=== PATIENT | female | born 1985 | race Caucasian/White ===

== ENCOUNTER 2024-01-22 09:21 | Emergency (ER) | payer OTHER, SELFPAY ==
[2024-01-22] VITALS (7 sets, daily range): BP systolic 119–137; BP diastolic 71–90; BMI 20.4
[2024-01-22] MEDS: TORADOL 15 MG IV (10:30)
--- NOTE | 2024-01-22 10:33 | ED.GENMED ---
History of Present Illness
General
Chief Complaint: Back Pain
Source: patient
Exam Limitations: none
Time Seen by Provider: 01/22/24 09:51
Nursing documentation reviewed up to this point in time: agreed with
History of Present Illness
History of Present Illness:
38 y/o F
h/o depression/anxiety
her e with L back pain that woke her from sleep at 7 am
it has radiated to L flank as well; pt tried moving bowels which didn't help
she has noticed some inc urinary frequency the pat few days
just finished menstrual cycle; no hematuria or dysuria
pain si worse with movement, she says she can't seem to find a comfortable position; was stronger earlier and seemed to be worse with deep breahting
no sob, fever, chills, cough, rash, diarrhea
Past History
Past History
ED Past Medical History: Psychiatric
ED Past Surgical History: None
Social History
Tobacco: Non-smoker
Alcohol: Occasional
Review of Systems
Review of Systems
Allergies reviewed?: Yes
All Other Systems: Not applicable
Phy Exam
Physical Exam
Physical Exam:
GENERAL: Alert , in no apparent distress, comfortable at rest
HEAD: NCAT
NECK: no midline tenderness, active ROM intact, no paraspinal muscle tenderness;
CARDIAC: Regular rate and rhythm, no edema
LUNGS: Clear breath sounds bilaterally, no acute respiratory distress, no wheezes/rales/rhonchi
ABDOMEN: Soft, mil dL flank tenderness; no r/g, no cvat, normal bowel sounds, nondistended
NEUROLOGICAL: Alert and oriented, no focal neuro deficits, CN intact, 5/5 strength, sensation intact, ambulation slight limp left leg
SKIN: Warm and dry,
MUSCULOSKELETAL: No edema, well perfused. Normal inspection of the left hip, left leg
Patient has no tenderness to palpation of the hip, minimal tenderness in the SI joint
Back: No midline tenderness, nontender back exam, no swelling
negative straight leg raise Bilaterally
PSYCH: Normal and appropriate interaction.
Course
Orders/Labs/Results
Orders:
Orders
01/22/24 10:19
Ketorolac [Toradol] 15 mg IV NOW STA
Test Result ONCE
01/22/24 10:32
Complete Blood Count/With Diff Urgent
Comprehensive Metabolic Panel Urgent
HCG, Serum Qualitative Screen Urgent
Lipase Urgent
Urinalysis Reflex To Culture Urgent
Date Specimen was Collected: 01/22/24
Time Specimen was Collected: 10:29
Urine Microscopic Reflex Cult Urgent
Urine Culture Urgent
XENIA Source: U
Specimen Description:
Date Specimen was Collected: 01/22/24
Time Specimen was Collected: 10:29
01/22/24 11:00
CT Abd/pel Without Iv Or Oral Urgent
Comment:
Reason For Exam: L FLANK PAIN;
01/22/24 14:28
Acetaminophen [Tylenol] 1,000 mg PO NOW STA
Tamsulosin [Flomax] 0.4 mg PO NOW STA
Abnormal Lab Results
01/22/24
10:32
Absolute Neuts (auto) 7.1 H 10^3/uL
(1.4-6.5)
Absolute Lymphs (auto) 0.9 L 10^3/uL
(1.2-3.4)
Neutrophils % 82.4 H %
(42.2-75.2)
Lymphocytes % 9.8 L %
(20.5-51.1)
Glucose 104 H mg/dl
(70-99)
Total Protein 8.3 H g/dl
(6.3-8.2)
Ur Occult Blood Reflex 3+ A
(Negative)
Urine RBC 3-6 A /HPF
(0-2)
Urine Bacteria (Reflex) Moderate A
(Negative)
01/22/24 10:32
01/22/24 10:32
Vital Signs
Initial and Last Documented VS:
Initial Vital Signs
Temp Pulse Resp BP Pulse Ox
97.6 F 78 16 137/90 100
01/22/24 09:30 01/22/24 09:30 01/22/24 09:30 01/22/24 09:30 01/22/24 09:30
Last Documented Vital Signs
Temp Pulse Resp BP Pulse Ox
97.5 F 86 20 135/81 99
01/22/24 14:36 01/22/24 14:36 01/22/24 14:36 01/22/24 14:36 01/22/24 14:36
MDM/Problems Addressed
Differential Diagnosis Includes:
kidney stone, msk pain, constipation
MDM/Problems Addressed:
38-year-old female with left sided back pain that wraps around to her left flank since this morning. Pain was more significant at home but it has gotten better. She has not had any vomiting but felt nauseous. No fevers or chills. She did notice
a little bit of increased urinary frequency over the last couple of days. On exam the patient looks slightly uncomfortable just with changing position but otherwise is not in any distress. She had no CVA tenderness or flank tenderness on exam.
Her urine shows 3+ microscopic hematuria. There is some bacteria but there is also 11-15 squamous cells and no white cells. I suspect this is a contaminated sample. Do not anticipate that she will have a positive urine culture if so it is
probably contaminated. Patient is white count is normal and chemistry is normal. Her CAT scan shows a 3 x 2 mm left UVJ stone with minimal hydro-. She was also notified about a large cyst in her left kidney which needs follow-up. Patient's pain
is controlled, is 4 out of 10 currently. Will give her Tylenol recommend Tylenol and ibuprofen for pain, Flomax, urinary strainer and follow-up with urology
*Critical Care Note
Total Time (30-74mins, 75-104mins- exclusive of procedures): Not Applicable
ED Attending Note
-
Portions of this chart may have been created with voice recognition software.� Occasional wrong word or��sound alike� substitutions may have occurred due to the inherent limitations of voice recognition software.
Discharge Plan
Departure
Patient Disposition: Home (Routine Discharge)
Date of Disposition: 01/22/24
Time of Disposition: 14:28
Patient with high blood pressure during this ER visit?: No
Condition: Fair
Covid-19: Not Applicable
Discharge Problem:
Kidney stone
Instructions: Kidney Stone, Adult ED
Prescriptions:
New
tamsulosin [Flomax] 0.4 mg capsule
0.4 mg PO DAILY Qty: 10 0RF
Referrals:
El Rey MD [Active] - Follow up in 5-7 days (urology)
Makenna Manuel DO [Family Provider] -
Stand Alone Forms: Return to Work
Activity Restrictions/Additional Instructions:
KEEP HYDRATED
TAKE FLOMAX 0.4 MG ONCE A DAY UNTIL YOU PASS THE STONE
URINATE THROUGH THE STRAINER EACH TIME YOU PEE
TAKE TYLENOL 2 EXTRA STRENGTH TABS 3 TIMES A DAY FOR PAIN
YOU CAN ALSO TRY MOTRIN 600 MG EVERY 8 HOURS WITH FOOD 2-3 TIMES A DAY NEEDED
RETURN FOR: SEVERE PAIN, VOMITING, FEVER, NOT URINATING OR ANY CONCERNS.
OTHERWISE FOLLOW UP WITH THE UROLOGIST NEEDED
Interventions
Interventions:
*Risk Screen - Suicide Last Done: 01/22/24 09:46
*General Assessment Last Done: 01/22/24 09:46
*Neglect/Abuse Screening Last Done: 01/22/24 09:46
ED- Fall Risk Assessment Last Done: 01/22/24 09:46
*ED COVID-19 Vaccine History Last Done: 01/22/24 09:46
*Nursing Disposition Last Done: 01/22/24 14:37
ED-Musculoskeletal Assessment Last Done: 01/22/24 09:46
Discharge Date and Time
Discharge Date/Time: 01/22/24 14:50
Print Language: SPANISH
[2024-01-22 10:40] LABS: % Basophils 0.8 % (0-2); % Immature Granulocytes 0.5 % (0-0.5); % Lymphocytes 9.8 % (20.5-51.1); % Monocytes 5.5 % (1.7-9.3); % Neutrophils 82.4 % (42.2-75.2); Absolute Basophils 0.1 10^3/uL (0-0.2); Absolute Eosinophils 0.1 10^3/uL (0-0.7); Absolute Lymphocytes 0.9 10^3/uL (1.2-3.4); Absolute Monocytes 0.5 10^3/uL (0.1-0.6); Absolute Neutrophils 7.1 10^3/uL (1.4-6.5); Hematocrit 40.7 % (37.0-47.0); Hemoglobin 13.7 g/dL (12.0-16.0); Mean Corp Hgb Conc. 33.7 g/dL (33.0-37.0); Mean Corpuscular Hgb 29.1 pg (27.0-31.0); Mean Corpuscular Volume 86.6 fL (81.0-99.0); Mean Platelet Volume 10.3 fL (7.4-10.4); Nucleated Red Blood Cells % 0 %; Platelet Count 321 10^3/uL (130-400); Red Cell Dist. Width 12.6 % (11.5-14.5); Urine Albumin Negative (Neg - Trace); Urine Bilirubin Negative (Negative); Urine Character Clear (Clear); Urine Color Yellow; Urine Glucose Negative (Negative); Urine Ketone Negative (Negative); Urine Leukocyte Negative (Negative); Urine Nitrite Negative (Negative); Urine Occult Blood 3+ (Negative); Urine Specific Gravity 1.015 (<1.030); Urine Urobilinogen Negative (Neg - 1+); White Blood Cell Count 8.7 10^3/uL (4.8-10.8)
[2024-01-22 10:56] LABS: Urine Bacteria Moderate (Negative); Urine White Cell 0-2 /HPF (0-5)
[2024-01-22 11:04] LABS: HCG, Serum Qualitative Screen Negative
[2024-01-22 11:18] LABS: ALT (SGPT) 19 U/L (0-35); AST (SGOT) 33 U/L (14-36); Albumin 4.9 g/dl (3.5-5.0); Alkaline Phosphatase 74 U/L (38-126); Blood Urea Nitrogen 17 mg/dl (7-17); Calcium 9.5 mg/dl (8.4-10.2); Carbon Dioxide 27 mmol/L (22-30); Chloride 101 mmol/L (98-107); Estimated Creatinine Clearance 70 ml/min; Glucose 104 mg/dl (70-99); Potassium 3.9 mmol/L (3.5-5.1); Sodium 142 mmol/L (135-145); Total Bilirubin 1.2 mg/dl (0.2-1.3); Total Protein 8.3 g/dl (6.3-8.2); eGFR > 60.00
[2024-01-22 11:45] LABS: Lipase 132 U/L (23-300)
[2024-01-22] MEDS: TYLENOL 1000 MG PO (14:43)
[2024-01-22] MEDS: FLOMAX 0.4 MG PO (14:43)
== END 2024-01-22 14:50 | disposition home or self-care (01) ==
LOC: EMR 09:21
PROVIDERS: Physician Assistant; EMERGENCY PHYSICIAN Emergency Medicine; FAMILY PHYSICIAN Family Medicine
DX: N13.2 Hydronephrosis with renal and ureteral calculous obstruction (principal)
CPT/HCPCS: 99284; 96374; 74176; 80053; 81003; 81015; 83690; 84703; 85025; 87086

== ENCOUNTER → 2024-06-27 09:48 | Outpatient (REF) | payer OTHER, SELFPAY | LOC: HWRAD 09:48 | PROVIDERS: ATTENDING PHYSICIAN Nurse Practitioner; FAMILY PHYSICIAN Family Medicine; REFERRING PHYSICIAN Surgery | DX: D30.02 Benign neoplasm of left kidney (principal) | CPT/HCPCS: 76770 ==